=== PATIENT | female | born 1980 | race Asian ===

== ENCOUNTER 2018-07-27 10:00 | Outpatient (RCR) | payer OTHER | END 2018-08-20 | disposition home or self-care (01) | LOC: WCC 10:00 | DX: L97.822 Non-pressure chronic ulcer of other part of left lower leg with fat layer exposed (principal); L97.829 Non-pressure chronic ulcer of other part of left lower leg with unspecified severity; L97.519 Non-pressure chronic ulcer of other part of right foot with unspecified severity; E11.9 Type 2 diabetes mellitus without complications | CPT/HCPCS: 99204 ==

== ENCOUNTER 2019-06-28 11:05 | Outpatient (RCR) | payer OTHER ==
[~2019-06-28] VITALS: Ht 160 cm; Wt 63.5 kg
[2019-06-30] MEDS ORDERED: Kenalog-10 5ml Inj IARTIC ONE (11:15)
== END 2019-07-20 | disposition home or self-care (01) ==
LOC: WCC 11:05
DX: L91.0 Hypertrophic scar (principal); G90.522 Complex regional pain syndrome I of left lower limb; E11.9 Type 2 diabetes mellitus without complications
CPT/HCPCS: 11900; G0463; J3301

== ENCOUNTER 2019-09-13 10:58 | Outpatient (RCR) | payer OTHER ==
[~2019-09-13] VITALS: Ht 160 cm; Wt 63.5 kg
[2019-09-13] MEDS ORDERED: Kenalog-10 5ml Inj IARTIC ONE (16:15)
== END 2019-09-18 | disposition home or self-care (01) ==
LOC: WCC 10:58
DX: G90.522 Complex regional pain syndrome I of left lower limb (principal); L91.0 Hypertrophic scar; E11.9 Type 2 diabetes mellitus without complications; Z79.84 Long term (current) use of oral hypoglycemic drugs
CPT/HCPCS: 11900; G0463; J3301

== ENCOUNTER 2019-12-06 10:54 | Outpatient (RCR) | payer OTHER ==
[~2019-12-06] VITALS: Ht 160 cm; Wt 63.5 kg
[2019-12-07] MEDS ORDERED: Kenalog-10 5ml Inj IARTIC ONE (12:45)
== END 2019-12-19 | disposition home or self-care (01) ==
LOC: WCC 10:54
DX: L91.0 Hypertrophic scar (principal); G90.522 Complex regional pain syndrome I of left lower limb; E11.9 Type 2 diabetes mellitus without complications
CPT/HCPCS: 11900; G0463; J3301

== ENCOUNTER 2020-03-06 11:21 | Outpatient (RCR) | payer OTHER ==
[~2020-03-06] VITALS: Ht 160 cm; Wt 63.5 kg
[2020-03-07] MEDS ORDERED: Kenalog-10 5ml Inj ONE (06:00)
[2020-03-07] MEDS ORDERED: Kenalog-10 5ml Inj IARTIC ONE (12:00)
== END 2020-03-20 | disposition home or self-care (01) ==
LOC: WCC 11:21
DX: L91.0 Hypertrophic scar (principal); E11.9 Type 2 diabetes mellitus without complications
CPT/HCPCS: 11900; J3301

== ENCOUNTER 2020-06-05 13:45 | Outpatient (RCR) | payer OTHER | END 2020-06-19 | disposition home or self-care (01) | LOC: WCC 13:45 | DX: L91.0 Hypertrophic scar (principal); E11.9 Type 2 diabetes mellitus without complications | CPT/HCPCS: 11900 ==